=== PATIENT | male | born 1960 | race African-American/Black ===

== ENCOUNTER 2024-04-23 23:19 | Emergency (ER) | payer MEDICAID ==
[~2024-04-23] VITALS: Ht 167.6 cm; Wt 80.0 kg
[2024-04-23 23:23] VITALS: TEMP 98.8; O2SAT 98
[2024-04-24] MEDS: KETOROLAC 30MG/ML VIAL IM ONE (00:38)
[2024-04-24 00:39] VITALS: BP 143/74; PULSE 78; RESP 16
[2024-04-24] MEDS: HYDROCODONE/ACETAMINOPHEN 5/325MG TABLET PO ONE (00:39)
[2024-04-24] MEDS: LIDOCAINE 5% PATCH TOP SCH (02:54)
[2024-04-24] MEDS ORDERED: NAPR-1074 MT (06:19)
[2024-04-24] MEDS ORDERED: BACL-141 MT (06:19)
[2024-04-24] MEDS: DEXAMETHASONE 10 MG/ML VIAL IM ONE (06:36)
== END 2024-04-24 06:36 | disposition home or self-care (01) ==
LOC: ER 23:19
DX: M54.50 Low back pain, unspecified (principal)
CPT/HCPCS: 99285; 72131; 96372; J1100; J1885; Z7610

== ENCOUNTER 2024-05-24 07:24 | Emergency (ER) | payer MEDICAID ==
[~2024-05-24] VITALS: Ht 175.3 cm; Wt 80.0 kg
[~2024-05-24 07:24] MED LIST: BACL-141 MT; NAPR-1074 MT
[2024-05-24] MEDS ORDERED: FAMOTIDINE 20MG/2ML VIAL IV STA (07:39)
[2024-05-24] MEDS ORDERED: ONDANSETRON HCL 4MG/2ML INJ IV STA (07:39)
[2024-05-24] MEDS ORDERED: KETOROLAC 30MG/ML VIAL IV STA (07:39)
[2024-05-24 07:45] VITALS: O2SAT 98
[2024-05-24 08:36] LABS: BASOPHILS % 0.3 % (0.0-2.0); DIFFERENTIAL COMMENT 0; EOSINOPHILS % 4.8 % (0.0-5.0); HEMATOCRIT. 39.3 % (42.0-52.0); LYMPHOCYTES % 18.6 % (20.0-50.0); MEAN CORPUSCULAR HEMOGLOBIN 25.9 pg (28.0-32.0); MEAN CORPUSCULAR VOLUME 78.4 fL (80.0-94.0); MONOCYTES % 10.8 % (2.0-8.0); NEUTROPHILS % 65.5 % (40.0-76.0); PLATELET 251 x1000/uL (130-400); RED BLOOD CELL COUNT 5.02 mill/uL (4.7-6.1); RED CELL DISTRIBUTION WIDTH 16.7 % (11.6-14.6); WHITE BLOOD COUNT 4.7 x1000/uL (4.5-11.0)
[2024-05-24 08:42] LABS: CHLORIDE 98 mEq/L (98-107); SODIUM 136 mEq/L (136-145)
[2024-05-24 08:43] LABS: CALCIUM 10.1 mg/dL (8.7-10.4); CARBON DIOXIDE 31 mEq/L (21-32)
[2024-05-24 08:48] LABS: CREATININE 0.8 mg/dL (0.6-1.3); GLUCOSE 97 mg/dL (70-105); UREA NITROGEN BLOOD 19 mg/dL (9-23)
[2024-05-24 08:49] LABS: PROTHROMBIN TIME 10.8 sec (9.6-11.0)
[2024-05-24 09:09] LABS: POTASSIUM 2.8 mEq/L (3.5-5.1)
[2024-05-24] MEDS ORDERED: POTASSIUM CHLORIDE 20MEQ/PACKET PO ONE (10:30)
[2024-05-24] MEDS: SODIUM CHLORIDE 0.9% 1,000 ML IV ONE (14:01)
[2024-05-24] MEDS: FAMOTIDINE 20MG/2ML VIAL IV NR (14:01)
[2024-05-24] MEDS: ONDANSETRON HCL 4MG/2ML INJ IV NR (14:06)
[2024-05-24] MEDS: KETOROLAC 30MG/ML VIAL IV NR (14:06)
[2024-05-24] MEDS: POTASSIUM CHLORIDE 20MEQ/PACKET PO NR (14:06)
[2024-05-24] MEDS ORDERED: MORPHINE SULFATE 2 MG/ML INJ (NOT FOR IM USE) IV ONE ×4 (14:45)
[2024-05-24] MEDS: NA PHOS,M-B/NA PHOS,DI-BA ENEMA 118ML PR NR (15:00)
[2024-05-24] MEDS: MORPHINE SULFATE 2 MG/ML INJ (NOT FOR IM USE) IV NR (15:00)
[2024-05-24] MEDS: DOCUSATE SODIUM 250MG CAPSULE PO SCH (15:14)
[2024-05-24] MEDS: ONDANSETRON HCL 4MG/2ML INJ IV PRN (16:43)
[2024-05-24] MEDS: TRAMADOL 50MG TABLET PO NR (19:33)
[2024-05-24 19:50] VITALS: BP 134/78; PULSE 62; RESP 18; TEMP 37.11408; O2SAT 98
== END 2024-05-24 20:14 | disposition short-term general hospital (02) ==
LOC: ER 07:24 → EDBEDREQ 10:41 → EDBEDREQTM 10:41 → EDBEDREQSVC 10:41 → CANBEDREQ 13:06 → ER 20:14
DX: R10.9 Unspecified abdominal pain (principal); E87.6 Hypokalemia
CPT/HCPCS: 99285; 74176; 96374; 96361; 96375; 80048; 83690; 85025; 85610; 36415; 96376; J3490; J1885; J2405; J7030